=== PATIENT | female | born 1985 | race Caucasian/White ===

== ENCOUNTER 2017-11-09 16:53 | Emergency (ER) | payer MEDICAID ==
[2009-11-20 04:57] VITALS: BMI 36.9
[2017-11-09 18:35] LABS: APPEARANCE CLEAR (CLEAR)
[2017-11-09 18:36] LABS: BACTERIA FEW /hpf (NONE SEEN); HCG URINE NEGATIVE (NEGATIVE); RED CELLS - URINE OCC /hpf (0-5); WHITE CELLS - URINE OCC /hpf (0-5)
[2017-11-09 19:47] LABS: COLOR ORANGE (YELLOW)
== END 2017-11-09 20:51 | disposition home or self-care (01) ==
LOC: D.ER 16:53
PROVIDERS: Emergency Medicine
DX: N39.0 Urinary tract infection, site not specified (principal); S39.012A Strain of muscle, fascia and tendon of lower back, initial encounter; X58.XXXA Exposure to other specified factors, initial encounter; Y93.89 Activity, other specified; Y92.019 Unspecified place in single-family (private) house as the place of occurrence of the external cause